=== PATIENT | female | born 1960 | race Hispanic/Latino ===

== ENCOUNTER 2020-11-27 13:10 | Emergency (ER) | payer OTHER ==
[~2020-11-27] VITALS: Ht 157.5 cm; Wt 78.0 kg
[2020-11-27 15:07] LABS: PLATELET COUNT 308 K/uL (152-353)
[2020-11-27 15:18] LABS: POTASSIUM 4.2 mmol/L (3.6-5.2); SODIUM 139 mmol/L (136-145)
[2020-11-27 19:16] VITALS: BP 154/80; TEMP 97.1
== END 2020-11-27 19:16 | disposition home or self-care (01) ==
LOC: ED 13:10
PROVIDERS: Emergency Medicine Emergency Medical Services
DX: J20.9 Acute bronchitis, unspecified (principal); Z20.822 Contact with and (suspected) exposure to COVID-19
CPT/HCPCS: 36415; 80053; 82542; 83605; 83880; 84484; 85027; 85379; 87040; 87502; 87635; 93005; 94664; 96360; 96365; 96366; 99284; J1956; U0003

== ENCOUNTER 2020-11-29 19:37 | Emergency (ER) | payer OTHER ==
[~2020-11-29] VITALS: Ht 157.5 cm; Wt 78.0 kg
[2020-11-29] MEDS ORDERED: VALSARTAN320 MG PO (20:48)
[2020-11-29] MEDS ORDERED: LAMICTAL100 MG PO (20:49)
[2020-11-29 20:58] VITALS: BP 135/84; TEMP 98.6
== END 2020-11-29 20:58 | disposition home or self-care (01) ==
LOC: ED 19:37
DX: J20.9 Acute bronchitis, unspecified (principal); Z79.2 Long term (current) use of antibiotics
CPT/HCPCS: 96372; 99283; J2930

== ENCOUNTER 2021-01-17 10:03 | Outpatient (CLI) | payer OTHER ==
[~2021-01-17 10:03] MED LIST: LAMICTAL100 MG PO; VALSARTAN320 MG PO
== END 2021-01-17 20:50 | disposition home or self-care (01) ==
LOC: RESP 10:03
PROVIDERS: ATTEND Internal Medicine Cardiovascular Disease
DX: I10 Essential (primary) hypertension (principal)
CPT/HCPCS: 93975

== ENCOUNTER 2021-02-07 08:52 | Outpatient (CLI) | payer OTHER ==
[2021-02-18 11:30] LABS: POTASSIUM 4.2 mmol/L (3.6-5.2)
== END 2021-02-07 19:00 ==
LOC: LABW 08:52
PROVIDERS: ATTEND Internal Medicine Cardiovascular Disease
DX: Z79.899 Other long term (current) drug therapy (principal)
CPT/HCPCS: 36415; 80048

== ENCOUNTER 2021-09-28 14:09 | Outpatient (CLI) | payer BC | END 2021-09-28 20:00 | disposition home or self-care (01) | LOC: US 14:09 | PROVIDERS: ATTEND Internal Medicine | DX: R59.9 Enlarged lymph nodes, unspecified (principal); R13.10 Dysphagia, unspecified ==

== ENCOUNTER 2022-07-23 23:35 | Emergency (ER) | payer OTHER ==
[~2022-07-23] VITALS: Ht 157.5 cm; Wt 78.0 kg
[2022-07-23 23:40] VITALS: TEMP 98.1
[2022-07-24 00:15] LABS: PLATELET COUNT 319 K/uL (152-353)
[2022-07-24 00:22] LABS: POTASSIUM 3.6 mmol/L (3.6-5.2)
[2022-07-24 00:58] VITALS: BP 142/85
== END 2022-07-24 00:58 | disposition home or self-care (01) ==
LOC: ED 23:35
PROVIDERS: Emergency Medicine
DX: R00.2 Palpitations (principal); R07.89 Other chest pain
CPT/HCPCS: 36415; 80053; 83880; 84484; 85027; 93005; 99283

== ENCOUNTER 2022-11-10 00:22 | Emergency (ER) | payer OTHER ==
[~2022-11-10] VITALS: Ht 157.5 cm; Wt 78.5 kg
[2022-11-10 00:35] VITALS: TEMP 98
[2022-11-10 01:36] LABS: POTASSIUM 3.7 mmol/L (3.6-5.2)
[2022-11-10 01:48] LABS: PLATELET COUNT 276 K/uL (152-353)
[2022-11-10 02:22] VITALS: BP 145/76
[2022-11-11] MEDS ORDERED: CLARITIN10 M1 PO (17:14)
[2022-11-11] MEDS ORDERED: LISI10TA11 PO (17:15)
[2022-11-11] MEDS ORDERED: LISI20TA11 PO (17:16)
== END 2022-11-10 02:22 | disposition home or self-care (01) ==
LOC: ED 00:22
PROVIDERS: Emergency Medicine
DX: J32.8 Other chronic sinusitis (principal); R42 Dizziness and giddiness; I10 Essential (primary) hypertension
CPT/HCPCS: 36415; 80053; 81002; 84484; 85027; 93005; 99283

== ENCOUNTER 2022-11-11 13:50 | Observation (INO) | payer OTHER ==
[2022-11-11] VITALS (7 sets, daily range): BP systolic 116–150; BP diastolic 66–87; TEMP 97.8–98.1; Ht 157.5 cm; Wt 78.1 kg
[~2022-11-11] VITALS: Ht 157.5 cm; Wt 78.1 kg
[2022-11-11 15:27] LABS: PLATELET COUNT 317 K/uL (152-353)
[2022-11-11 15:40] LABS: POTASSIUM 3.7 mmol/L (3.6-5.2)
[2022-11-11] MEDS ORDERED: CLARITIN10 M1 PO (17:14)
[2022-11-11] MEDS ORDERED: LISI10TA11 PO (17:15)
[2022-11-11] MEDS ORDERED: LISI20TA11 PO (17:16)
[2022-11-12 03:32] VITALS: BP 107/52; TEMP 97.8
[2022-11-12 07:04] VITALS: BP 113/59; TEMP 97.6
[2022-11-12] MEDS ORDERED: MECLIZINE25 MG PO (09:20)
[2022-11-12] MEDS ORDERED: Levofloxacin PO (09:22)
[2022-11-12] MEDS ORDERED: [UNRECOGNIZED DRUG - CODE] NAS (09:28)
== END 2022-11-12 11:08 | disposition home or self-care (01) ==
LOC: MED/SURG 13:50
PROVIDERS: ADMIT Internal Medicine; ATTEND Internal Medicine
DX: J01.80 Other acute sinusitis (principal); J32.8 Other chronic sinusitis; R42 Dizziness and giddiness; R11.2 Nausea with vomiting, unspecified; G40.802 Other epilepsy, not intractable, without status epilepticus; I10 Essential (primary) hypertension
CPT/HCPCS: 80053; 81002; 85027; 96361; 96365; 99220; 99221; J1956; G0378; G0379

== ENCOUNTER 2023-02-28 07:40 | Outpatient (CLI) | payer OTHER ==
[~2023-02-28 07:40] MED LIST changes: +CLARITIN10 M1 PO; +LISI10TA11 PO; +LISI20TA11 PO; +Levofloxacin PO; +MECLIZINE25 MG PO; +[UNRECOGNIZED DRUG - CODE] NAS
== END 2023-02-28 18:56 | disposition home or self-care (01) ==
LOC: US 07:40
PROVIDERS: ATTEND Nurse Practitioner Family
DX: R10.12 Left upper quadrant pain (principal)

== ENCOUNTER 2023-05-26 09:41 | Outpatient (CLI) | payer OTHER | END 2023-05-26 19:02 | disposition home or self-care (01) | LOC: RAD 09:41 | PROVIDERS: ATTEND Physician Assistant | DX: M79.644 Pain in right finger(s) (principal) ==